=== PATIENT | female | born 1995 | race Caucasian/White ===

== ENCOUNTER 2021-09-30 16:25 | Emergency (ER) | payer OTHER, SELFPAY ==
[2021-09-30 16:35] VITALS: BP 141/89; PULSE 98; RESP 18; TEMP 37.1; O2SAT 100
--- NOTE | 2021-09-30 16:50 | ED.GENADULT ---
HPI - General Adult General Chief complaint: Ear Stated complaint: Bilateral Ear Irritation Source: patient Mode of arrival: ambulatory Limitations: no limitations History of Present Illness HPI narrative: Patient presents for evaluation of bilateral ear pain. Left ear pain started five days ago. Right ear pain started a few days after. She reports some muffled hearing on the left that is more noticeable with movement of her head in certain directions. She denies any tinnitus. No fever, chills, nausea, vomiting, respiratory symptoms. She has not been swimming recently. She does wear earphones frequently. She states that palpation of the area makes the pain worse. She reports some redness to the external ear on the right and some flaking skin adjacent to bilateral ear canals. She has no other concerns. Related Data Home Medications Medication Instructions Recorded Confirmed bupropion HCl 150 mg 24 hr tablet, 1 tablet PO DAILY 09/30/21 09/30/21 extended release hydroxyzine HCl 25 mg tablet 1 tablet DAILY 09/30/21 09/30/21 levonorgestrel 20 mcg/24 hours (7 1 device intrauterine ONCE 09/30/21 09/30/21 yrs) 52 mg intrauterine device (Mirena) Allergies Allergy/AdvReac Type Severity Reaction Status Date / Time No Known Allergies Allergy Verified 09/30/21 16:39 Review of Systems Review of Systems: CONSTITUTIONAL: Denies fever, chills, or sweats. EYES: Denies visual changes, redness, or discharge. ENT: Reports bilateral ear pain, redness to left ear, flaking skin to both ears and muffled hearing on the left positionally. Denies rhinorrhea, congestion, sore throat CARDIOVASCULAR: Denies chest pain, palpitations, or edema. RESPIRATORY: Denies cough or dyspnea. GASTROINTESTINAL: Denies abdominal pain, nausea, vomiting, or diarrhea. GENITOURINARY: Denies dysuria or hematuria. SKIN: Denies rash or itching. MUSCULOSKELETAL: Denies back pain, joint pain, or myalgia. NEUROLOGIC: Denies headache, numbness, dizziness, or weakness. PSYCHIATRIC: Denies anxiety or depression. [facility] Past Medical History Medical History Anxiety Surgical History Surgical History No pertinent past surgical history Family History Family History Mother Family history non-contributory Social History Social History (Updated 09/30/21 @ 16:56 by Ilir Perdomo [facility]) Smoking status: Never smoker Substance use: never Additional living arrangements comments: Lives with boyfriend Gender identity (if verbalized by the patient): Female Sexual Orientation (if Verbalized by the Patient): Straight or Heterosexual Spiritual care concerns: No Exam Narrative: GENERAL: Well-appearing, well-nourished, and in no acute distress. HEAD: Normocephalic, atraumatic. EYES: PERRLA and EOMI. ENT: Nares clear, no rhinorrhea or epistaxis. Mucous membranes moist. Oropharynx without tonsillar hypertrophy exudate or other lesions. The is yellow/white exudate in right ear canal. There is redness and swelling in right ear canal. Bilateral TMs erythematous NECK: Supple. No adenopathy or masses. No carotid bruits or JVD CHEST: Clear to auscultation. No respiratory distress. No wheezes rales or rhonchi HEART: Regular rate and rhythm. No murmur heard. Normal peripheral pulses. ABDOMEN: Soft, nontender, nondistended, normal active bowel sounds. EXTREMITIES: Normal range of motion. No edema. SKIN: There is dry flaking skin to external ears bilaterally adjacent to the canals. Warm, dry, no rash. There is redness to right ear canal NEURO: No focal deficits. Alert and oriented x3. PSYCH: Normal mood and affect. Course Course Emergency Course: This is a 26-year-old female that presented with reports of pain in both ears. She has evidence of otitis externa. Will t
== END 2021-09-30 16:48 | disposition home or self-care (01) ==
PROVIDERS: Emergency Provider Nurse Practitioner
DX: H60.91 Unspecified otitis externa, right ear (principal); F41.9 Anxiety disorder, unspecified
CPT/HCPCS: 99203; G0463

== ENCOUNTER 2023-10-06 15:14 | Outpatient (CLI) | payer OTHER, SELFPAY ==
--- NOTE | ~2023-10-06 | US_ITS ---
EXAMINATION: US transvaginal DATE: 10/06/2023 15:40 INDICATION: Displacement of intrauterine contraceptive device. Missing IUD strings. TECHNIQUE: Multiple transvaginal sonographic images of the pelvis were obtained. COMPARISON: None. FINDINGS: The uterus measures 6.2 x 2.1 x 3.3 cm. There is no free fluid in the pelvis. The endometrial complex measures 6 mm in thickness. There is an intrauterine device in expected position. The right ovary is not visualized. The left ovary measures 2.7 x 1.4 x 2.4 cm. IMPRESSION: 1. Intrauterine device in expected position. Reviewed, dictated and finalized at location E.
== END 2023-10-06 15:15 ==
PROVIDERS: PCP Nurse Practitioner; Visit Provider Nurse Practitioner
DX: T83.32XA Displacement of intrauterine contraceptive device, initial encounter (principal)
CPT/HCPCS: 76830